=== PATIENT | male | born 2000 | race Caucasian/White ===

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

== ENCOUNTER → 2020-07-28 | Outpatient (CLI) | payer OTHER ==
--- NOTE | 2020-07-28 10:50 | REP ---
INDICATION: STRAIN COMPARISON: None. TECHNIQUE: Internal rotation, external rotation, and Y view. FINDINGS: No acute fracture or dislocation. The acromioclavicular and glenohumeral joints are intact. No periarticular calcifications or degenerative changes are appreciated. Sub acromial space is normal. Surrounding soft tissues are unremarkable. IMPRESSION: Normal left shoulder radiographs. <Electronically signed by Jose Lazaro > 07/28/20 1049
== END ==
LOC: M WUC 10:18
PROVIDERS: ATTEND Physician Assistant
DX: S46.812A Strain of other muscles, fascia and tendons at shoulder and upper arm level, left arm, initial encounter (principal); X58.XXXA Exposure to other specified factors, initial encounter; Y92.9 Unspecified place or not applicable

== ENCOUNTER 2020-10-31 16:02 | Day surgery (SDC) | payer OTHER ==
[~2020-10-31] VITALS: Ht 190.5 cm; Wt 84.3 kg
[2020-10-31] MEDS ORDERED: LIDOCAINE 2% 5ML JELLY UROJET TOP ONE (17:10)
[2020-10-31] MEDS ORDERED: LevoFLOXacin IV 500 MG in IV 1 EA IV ONE (18:50)
[2020-10-31] MEDS ORDERED: fentaNYL 100 MCG/2 ML INJECTION (J3010) As Ordered ONE (19:46)
[2020-10-31] MEDS ORDERED: MIDAZOLAM INJ 2MG/2ML VIAL (J2250 PER 1MG) As Ordered ONE (19:46)
[2020-10-31] MEDS ORDERED: propofoL 200 MG/20 ML VIAL As Ordered ONE (19:46)
[2020-10-31] MEDS ORDERED: LIDOCAINE 2% 100MG/5ML SDV (FOR ANES.) As Ordered ONE (19:46)
--- NOTE | 2020-10-31 19:49 | SMCUROLCON ---
Urology Consultation General Date of Consultation 10/31/20 Reason For Consultation This patient is seen for FALL. History of Present Illness This is a 20 y/o M w/ no significant PMH transferred from [facility] after sustaining a straddle injury from a 3 foot fall at a construction site. The patient notes that after the fall he had testicular and penile pain. A scrotal US done at [facility] was unremarkable. Since the fall he has intermittently had blood drip from the urethral meatus. He has been unable to void since prior to the fall this morning. At this time he has only mild penile and testicular pain. He has some suprapubic discomfort. Past Medical History Medical History None Surgical Hstory None Allergies Allergies: Coded Allergies: Penicillins (Verified Allergy, Mild, HIVES, 10/31/20) shellfish derived (Verified Allergy, Unknown, 10/31/20) Nut Tree (Verified Adverse Reaction, Intermediate, TONGUE BURNING, 02/10/18) Review of Systems Constitutional: Denies: Fever, Chills, Sweats, Weakness, Malaise Eyes: Denies: Pain, Vision change Skin: Denies: Rash, Lesions, Breakdown, Nail Changes Pulmonary: Denies: Dyspnea, Cough Cardiovascular: Denies Chest Pain, Denies Palpitations Gastrointestinal: Reports: Abdominal Pain (suprapubic discomfort); Denies: Nausea, Vomiting Genitourinary: Reports: Hematuria, Retention Hematologic: Denies: Bruising, Bleeding Excessively Musculoskeletal: Denies: Neck Pain, Back Pain Neurological: Denies: Weakness, Numbness, Incoordination, Change in Speech Psych: Reports: Mood Normal; Denies: Anxiety, Depression Physical Examination General Exam: Alert, Cooperative, No Acute Distress Chest Exam: Normal air movement Heart Exam: Rate Normal Abdomen Exam: Soft; No: Tenderness Male Exam circumcised phallus w/o lesions - no penile or scrotal ecchymoses; normal urethral meatus w/ small amount of blood; b/l descended testicles, both normal in size and w/o masses - nontender Skin Exam: Nl turgor and temperature Neuro Exam: Normal Speech Psych Exam: Mental status NL, Mood NL Vital Signs/I&O Vital Signs Date Time Temp Pulse Resp B/P (MAP) Pulse Ox O2 Delivery O2 Flow Rate FiO2 10/31/20 17:02 98.1 74 18 112/61 (78) 99 Room Air Assessment This is a 20 y/o M w/ a urethral injury from a fall earlier today. Due to his suprapubic discomfort, I performed bedside flexible cystoscopy under sterile conditions. I was not able to examine the urethra well enough to determine the extent of injury b/c of bleeding and blood clot. I was able to navigate the scope all the way into the bladder w/o difficulty. The bladder was full and there was no bleeding in the bladder. A guidewire was advanced into the bladder and the scope was removed. I then advanced an 18Fr beaver tip catheter over the wire. The balloon was inflated and the wire was removed. The catheter subsequently drained clear yellow urine. After placing the catheter the patient had a constant stream of blood coming from the meatus. Because of this, I did not feel comfortable sending him home and recommended that we take him to the OR to perform cystoscopy under anesthesia so that I could get a better idea of the extent of his urethral injury and to cauterize the source of bleeding. After a discussion of the risks and benefits, informed consent was signed. Plan - informed consent signed - to OR for cystoscopy under anesthesia - levaquin IV 500mg given - MAKEDA PERALTA MD Oct 31, 2020 18:34
[2020-10-31] MEDS ORDERED: dexameTHASONE 4 MG/ML 1ML VIAL (J1100 PER 1MG) As Ordered ONE (20:05)
[2020-10-31] MEDS ORDERED: ONDANSETRON 4MG/2ML VIAL As Ordered ONE (20:05)
[2020-10-31] MEDS ORDERED: fentaNYL 100 MCG/2 ML INJECTION (J3010) IV PRN (20:45)
[2020-10-31] MEDS ORDERED: oxyCODONE 5MG TAB PO PRN (20:45)
[2020-10-31] MEDS ORDERED: LR 1,000 ML IV SCH (20:45)
[2020-10-31] MEDS ORDERED: ONDANSETRON 4MG/2ML VIAL IV PRN ×2 (20:45→20:55)
[2020-10-31] MEDS ORDERED: PERCOCET 5MG/325MG TAB PO PRN (20:55)
[2020-10-31 21:50] VITALS: BP 122/58
[2020-10-31 22:05] VITALS: BP 122/59
[2020-10-31 22:30] VITALS: BP 120/59
[2020-10-31] MEDS: DOCUSATE SODIUM 100MG CAPSULE PO SCH (22:31)
[2020-10-31 23:30] VITALS: BP 117/59
[2020-11-01] VITALS (7 sets, daily range): BP systolic 102–122; BP diastolic 57–64
[2020-11-01] MEDS: ACETAMINOPHEN TAB 650MG DOSE (2X325MG) PO PRN ×2 (05:43→10:36)
[2020-11-01 07:01] LABS: HEMATOCRIT 42.9 % (42.0-52.0); HEMOGLOBIN 14.5 g/dl (13.5-17.5); MEAN CORPUSCULAR HEMOGLOBIN 30.2 pg (27.0-33.0); MEAN CORPUSCULAR HGB CONC 33.8 g/dl (32.0-36.5); MEAN CORPUSCULAR VOLUME 89.4 fl (80.0-96.0); PLATELET COUNT, AUTOMATED 214 10^3/uL (150-450); WHITE BLOOD COUNT 7.9 10^3/uL (4.0-10.0)
[2020-11-01 07:24] LABS: BLOOD UREA NITROGEN 16 MG/DL (7-18); CALCIUM LEVEL 9.8 MG/DL (8.5-10.1); CARBON DIOXIDE LEVEL 26 MEQ/L (21-32); CHLORIDE LEVEL 107 MEQ/L (98-107); CREATININE FOR GFR 0.89 MG/DL (0.70-1.30); GLUCOSE, FASTING 127 MG/DL (70-100); POTASSIUM SERUM 4.5 MEQ/L (3.5-5.1); SODIUM LEVEL 138 MEQ/L (136-145)
[2020-11-01] MEDS: DOCUSATE SODIUM 100MG CAPSULE PO SCH ×2 (07:45→19:44)
--- NOTE | 2020-11-01 08:13 | IPNPDOC ---
Subjective Review oF Systems Chief Complaint The patient is a 20-year-old male admitted with a reason for visit of Hematuria. Events since Last Encounter No acute events o/n. Patient notes mild discomfort from the catheter. The c atheter drained well o/n. He did have more bleeding around the catheter this morning and dressings were reinforced. Objective Physical Examination General Exam: Alert, Cooperative, No Acute Distress Skin Exam: Nl turgor and temperature Neuro Exam: Normal Gait, Normal Speech Psych Exam: Mental status NL, Mood NL Other physical findings catheter in place, draining clear yellow urine; small amount of blood clot at the meatus, but no active bleeding at this time Vital Signs/I&O Vital Signs Date Time Temp Pulse Resp B/P (MAP) Pulse Ox O2 Delivery O2 Flow Rate FiO2 11/01/20 06:00 97.7 55 14 115/60 (78) 96 Room Air I&O- Last 24 Hours up to 6 AM 11/01/20 06:00 Intake Total 2100 ml Output Total 1740 ml Balance 360 ml Laboratory Data Labs 24H Laboratory Tests 2 11/01/20 06:43: Nucleated Red Blood Cells % (auto) 0.0, Anion Gap 5L, Calcium Level 9.8 CBC/BMP Laboratory Tests 11/01/20 06:43 Assessment/Plan Date Seen The patient was seen on 11/01/20. Patient Summary This is a 20 y/o M admitted for a urethral injury sustained from a fall, POD1 s /p cysto and catheter placement over a wire. The patient is still having intermittent small amounts of bleeding around the catheter. His Hb is normal at 14.5. Vitals stable. Plan/VTE VTE Prophylaxis Ordered?: Yes VTE Exclusion Mechanical Proph: N/A:VTE Prophy Ordered Plan/Urinary Catheter Reason for insertion/continuin: Acute obstruct/retention Plan - keep patient bedrest for now - catheter to gravity drainage - tylenol or percocet prn pain - regular diet - will have patient start ambulating around noon - if bleeding around the catheter remains at a minimum, will discharge him home later today MAKEDA RANDLE MD Nov 01, 2020 08:13
--- NOTE | 2020-11-01 08:23 | RO ---
OPERATIVE NOTE DATE OF OPERATION: 10/31/2020 PREOPERATIVE DIAGNOSIS: Urethral injury. POSTOPERATIVE DIAGNOSIS: Urethral injury. PROCEDURE: Cystoscopy with complex catheter placement over wire. SURGEON: Oliver Reveles MD TIME MOTION ANALYST: None. ANESTHESIA: General. OPERATIVE INDICATIONS: This is a 20-year-old male who sustained a straddle injury earlier today and has been having urethral bleeding since then. I placed a catheter in the emergency room and afterwards he started having significantly more bleeding around the catheter. It was recommended that we bring him to the operating room to get a better look inside his urethra to determine the extent of injury. DESCRIPTION OF PROCEDURE: The patient was brought to the operating room and general anesthesia induced. Prophylactic antibiotics were infused. He was placed in dorsal lithotomy position and prepped and draped in usual sterile fashion. At this point a resectoscope was inserted in the urethral meatus and advanced toward the bladder. Of note at the level of the bulbar urethra at 6 o'clock there was an approximately 1-2 cm defect with blood clot inside it. There did not appear to be significant active bleeding other than small amount of venous oozing. I then advanced the cystoscope toward the bladder and there were no injuries to the membranous urethra. The prostatic urethra was unremarkable. I examined the bladder and there were no abnormalities, other than a few small blood clots. I then advanced a guidewire into the bladder and withdrew the resectoscope. I examined the injury in the bulbar urethra again and since there was no significant active bleeding I decided not to try to disturb the blood clot or to cauterize anything inside the area with concern that it might ultimately increase the risk of stricture later on. I then removed the resectoscope and utilized the guidewire to advance an 18-[place] Cardinal-tip catheter into the bladder. The balloon was filled with 10 mL of sterile water and the guidewire was removed. The catheter was connected to gravity drainage. Once this was done there did not appear to be any bleeding around the catheter at this point. This marked the conclusion of the procedure. The patient was taken out of the dorsal lithotomy position, awakened from anesthesia and transported to the recovery room in stable condition. ESTIMATED BLOOD LOSS: 10 mL. COMPLICATIONS: None. SPECIMEN: None. PLAN: I will leave this patient's catheter in for approximately 3-4 weeks to give adequate time for his urethra to heal. Will take his catheter out in urology office and likely will undergo follow up cystoscope to determine how well he has healed from this. BEATRIZ
[2020-11-01] MEDS ORDERED: BACTRIM 160MG/800MG DS TAB PO SCH (09:00)
[2020-11-01] MEDS ORDERED: DOK1CAP7 PO (16:46)
[2020-11-01] MEDS ORDERED: SULF1TAB23 PO (16:46)
== END 2020-11-01 20:07 | disposition home or self-care (01) ==
LOC: M ED 16:02 → M SDC 18:38 → M MSPAV 21:40 → M SDC 11-01 20:07
PROVIDERS: ATTEND Urology
DX: S37.39XA Other injury of urethra, initial encounter (principal); W19.XXXA Unspecified fall, initial encounter; Y92.61 Building [any] under construction as the place of occurrence of the external cause; Y93.H3 Activity, building and construction; Y99.0 Civilian activity done for income or pay; Z88.0 Allergy status to penicillin; Z91.013 Allergy to seafood; Z91.010 Allergy to peanuts; Z91.81 History of falling
CPT/HCPCS: 36415; 52000; 80048; 85027; 99285; C1769; J1100; J1956; J2250; J2405; J3010

== ENCOUNTER → 2021-09-14 | Outpatient (REF) | payer OTHER ==
[~2021-09-14] MED LIST: DOK1CAP4 PO; SULF1TAB23 PO
[2021-09-14 14:04] LABS: APPEARANCE, URINE MANUAL CLEAR (CLEAR); BILIRUBIN, URINE MANUAL NEGATIVE (NEGATIVE); COLOR, URINE MANUAL YELLOW (YELLOW); GLUCOSE, URINE (UA) MANUAL NEGATIVE (NEGATIVE); KETONE, URINE MANUAL NEGATIVE (NEGATIVE); LEUKOCYTE ESTERASE, URINE MAN NEGATIVE (NEGATIVE); NITRITE, URINE MANUAL NEGATIVE (NEGATIVE); PROTEIN, URINE MANUAL NEGATIVE (NEGATIVE); UROBILINOGEN, URINE MANUAL NORMAL (NORMAL)
[2021-09-14 14:05] LABS: BLOOD URINE MANUAL TRACE (NEGATIVE)
[2021-09-14 14:27] LABS: WBC, URINE NONE SEEN /hpf (0-3)
[2021-09-14 14:28] LABS: BACTERIA, URINE SMALL AMOUNT; SQUAMOUS EPITHELIAL CELL URINE NONE SEEN /hpf (SMALL AMT)
== END ==
LOC: M SMT 12:47
PROVIDERS: ATTEND Urology
DX: R31.9 Hematuria, unspecified (principal)

== ENCOUNTER → 2023-10-22 | Outpatient (CLI) | payer OTHER ==
[~2023-10-22] MED LIST changes: +ISOVUE-370 76% 100ML VIAL As Ordered ONE
== END ==
LOC: M RAD 13:16
PROVIDERS: ATTEND Urology
DX: R31.0 Gross hematuria (principal)

== ENCOUNTER → 2023-11-25 | Outpatient (CLI) | payer OTHER ==
[~2023-11-25] MED LIST changes: -ISOVUE-370 76% 100ML VIAL As Ordered ONE
[2023-11-25 22:42] LABS: HEMATOCRIT 44.4 % (42.0-52.0); HEMOGLOBIN 15.5 g/dl (13.5-17.5); MEAN CORPUSCULAR HEMOGLOBIN 30.9 pg (27.0-33.0); MEAN CORPUSCULAR HGB CONC 34.9 g/dl (32.0-36.5); MEAN CORPUSCULAR VOLUME 88.6 fl (80.0-96.0); PLATELET COUNT, AUTOMATED 252 10^3/uL (150-450); RED BLOOD COUNT 5.01 10^6/uL (4.30-6.10); WHITE BLOOD COUNT 10.9 10^3/uL (4.0-10.0)
[2023-11-25 23:06] LABS: BLOOD UREA NITROGEN 17 MG/DL (9-23); CALCIUM LEVEL 9.5 MG/DL (8.5-10.1); CARBON DIOXIDE LEVEL 26 MMOL/L (20-31); CHLORIDE LEVEL 103 MMOL/L (98-107); CREATININE FOR GFR 0.96 MG/DL (0.70-1.30); GLOMERULAR FILTRATION RATE > 60.0 (>60); GLUCOSE, FASTING 76 MG/DL (60-100); POTASSIUM SERUM 3.8 MMOL/L (3.5-5.1); SODIUM LEVEL 138 MMOL/L (136-145)
== END ==
LOC: M WUC 15:05
PROVIDERS: ATTEND Urology
DX: Z01.818 Encounter for other preprocedural examination (principal); N21.0 Calculus in bladder

== ENCOUNTER 2023-12-05 06:09 | Day surgery (SDC) | payer OTHER ==
[~2023-12-05] VITALS: Ht 190.5 cm; Wt 87.2 kg
[2023-12-05] MEDS ORDERED: LR 1,000 ML IV SCH ×2 (06:15→08:30)
[2023-12-05] MEDS ORDERED: ONDANSETRON 4MG 2ML VIAL As Ordered ONE (06:59)
[2023-12-05] MEDS ORDERED: propofoL 200 MG/20 ML VIAL As Ordered ONE (06:59)
[2023-12-05] MEDS ORDERED: LIDOCAINE 2% 100MG/5ML SDV (FOR ANES.) As Ordered ONE (06:59)
[2023-12-05] MEDS ORDERED: fentaNYL 100 MCG/2 ML INJECTION As Ordered ONE (07:02)
[2023-12-05] MEDS ORDERED: MIDAZOLAM INJ 2MG/2ML VIAL As Ordered ONE (07:03)
[2023-12-05] MEDS: ceFAZolin SOD 2 GM in IV 1 EA IV ONE (07:45)
[2023-12-05] MEDS ORDERED: ACETAMINOPHEN 1000MG 100ML IV BAG As Ordered ONE (07:47)
[2023-12-05] MEDS ORDERED: ONDANSETRON 4MG 2ML VIAL IV PRN (08:30)
[2023-12-05] MEDS ORDERED: oxyCODONE 5MG TAB PO PRN (08:30)
[2023-12-05] MEDS ORDERED: HYDROMORPHONE HCL 0.5 MG/ 0.5 ML SYRINGE IV PRN (08:30)
[2023-12-05] MEDS ORDERED: fentaNYL 100 MCG/2 ML INJECTION IV PRN (08:30)
[2023-12-05 09:30] VITALS: BP 106/58; TEMP 98.4; O2SAT 98
[2023-12-05] MEDS ORDERED: ACETAMINOPHEN TAB 650MG DOSE (2X325MG) PO PRN (09:30)
== END 2023-12-05 10:14 | disposition home or self-care (01) ==
LOC: M SDC 06:09
PROVIDERS: ATTEND Urology
DX: N21.0 Calculus in bladder (principal); Z90.49 Acquired absence of other specified parts of digestive tract; Z88.0 Allergy status to penicillin; Z91.013 Allergy to seafood; Z91.018 Allergy to other foods
CPT/HCPCS: 52317; 82365; A4215; C1769; J0131; J0690; J1100; J2250; J2405; J3010